=== PATIENT | female | born 1980 | race Two or more races ===

== ENCOUNTER 2017-03-19 16:39 | Emergency (ER) | payer MEDICAID ==
[~2017-03-19] VITALS: Ht 152.4 cm; Wt 75.4 kg
[2017-03-19 16:44] VITALS: BP 113/76
== END 2017-03-19 18:57 | disposition home or self-care (01) ==
LOC: ED 18:40
DX: S63.634A Sprain of interphalangeal joint of right ring finger, initial encounter (principal); S63.636A Sprain of interphalangeal joint of right little finger, initial encounter; V20.0XXA Motorcycle driver injured in collision with pedestrian or animal in nontraffic accident, initial encounter; Y93.89 Activity, other specified; Y99.8 Other external cause status; Y92.410 Unspecified street and highway as the place of occurrence of the external cause
CPT/HCPCS: 29125

== ENCOUNTER 2017-07-20 11:11 | Emergency (ER) | payer MEDICAID ==
[~2017-07-20] VITALS: Ht 152.4 cm; Wt 73.0 kg
[2017-07-20 11:23] VITALS: BP 113/72
== END 2017-07-20 12:25 | disposition home or self-care (01) ==
LOC: ED 11:23
DX: J20.8 Acute bronchitis due to other specified organisms (principal)
CPT/HCPCS: 99283

== ENCOUNTER 2018-07-28 10:45 | Emergency (ER) | payer MEDICAID ==
[~2018-07-28] VITALS: Ht 152.4 cm; Wt 65.0 kg
[2018-07-28 11:50] LABS: MICROSCOPIC NOT IND
[2018-07-28 11:56] LABS: ALANINE AMINOTRANSFERASE 20 U/L (12-78); ANION GAP 7 mmol/L (5-15); CALCIUM 7.5 mg/dL (8.5-10.1); CHLORIDE 109 mmol/L (98-107); CREATININE 0.65 mg/dL (0.55-1.02)
[2018-07-28 11:57] LABS: CULTURE INDICATED? NO
[2018-07-28 12:01] LABS: ALKALINE PHOSPHATASE 82 U/L (45-117); BILIRUBIN,TOTAL 0.2 mg/dL (0.2-1.0); TOTAL PROTEIN 6.6 g/dL (6.4-8.2)
[2018-07-28 12:05] LABS: BASOPHILS # (AUTO) 0.03 x10^3/uL (0-0.1); BASOPHILS % (AUTO) 0 % (0-1); EOSINOPHILS # (AUTO) 0.03 x10^3/uL (0-0.4); EOSINOPHILS % (AUTO) 1 % (1-7); LYMPHOCYTES # (AUTO) 1.01 x10^3/uL (1-3.4); LYMPHOCYTES % (AUTO) 15 % (22-44); MD NO; MEAN CORPUSCULAR HEMOGLOBIN 25.9 pg (27.0-34.8); MEAN CORPUSCULAR HGB CONC 33.1 g/dL (32.4-35.8); MEAN CORPUSCULAR VOLUME 78.2 fL (80-100); MEAN PLATELET VOLUME 7.6 fL (7.4-10.4); MONOCYTES # (AUTO) 0.42 x10^3/uL (0.2-0.8); MONOCYTES % (AUTO) 6 % (2-9); NEUTROPHILS # (AUTO) 5.27 x10^3/uL (1.8-6.8); NEUTROPHILS % (AUTO) 78 % (42-75); PLATELET COUNT 343 x10^3/uL (130-400); RED BLOOD COUNT 4.27 x10^6/uL (3.82-5.3); RED CELL DISTRIBUTION WIDTH 15.5 % (9.6-15.2)
[2018-07-28 13:44] VITALS: BP 118/79
== END 2018-07-28 13:45 | disposition home or self-care (01) ==
LOC: ED 13:25
DX: R10.31 Right lower quadrant pain (principal)
CPT/HCPCS: 36415; 71046; 76830; 80053; 81003; 83690; 84703; 85025; 99284

== ENCOUNTER 2020-07-01 11:53 | Emergency (ER) | payer MEDICAID ==
[~2020-07-01] VITALS: Ht 152.4 cm; Wt 64.0 kg
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
--- NOTE | 2020-07-01 12:02 | NUR ---
ERP AT BEDSIDE.
[2020-07-01] MEDS ORDERED: LIDOCAINE-MPF 1%, 5ML ONE (12:27)
[2020-07-01] MEDS ORDERED: DIPH,PERTUSS(ACELL),TET VAC/PF 0.5 ML IM-VACC ONE ×2 (12:30→12:47)
[2020-07-01] MEDS ORDERED: LIDOCAINE 1%, 10ML INFIL ONE (12:30)
--- NOTE | 2020-07-01 13:04 | NUR ---
PT SITTING UPRIGHT ON GURNEY WATCHING TV, CHILDREN AT BEDSIDE. PT DENIES ANY NEEDS AT THIS TIME. CALL LIGHT WITHIN REACH. ERP AT BEDSIDE FOR SUTURES.
[2020-07-01 14:04] VITALS: BP 124/74
== END 2020-07-01 14:06 | disposition home or self-care (01) ==
LOC: ED 12:29
DX: S01.311A Laceration without foreign body of right ear, initial encounter (principal); S33.5XXA Sprain of ligaments of lumbar spine, initial encounter; S39.012A Strain of muscle, fascia and tendon of lower back, initial encounter; S09.90XA Unspecified injury of head, initial encounter; Z98.51 Tubal ligation status; Y04.8XXA Assault by other bodily force, initial encounter; Y93.89 Activity, other specified; Y92.488 Other paved roadways as the place of occurrence of the external cause; Y99.8 Other external cause status
CPT/HCPCS: 12031; 70450; 72110; 90471; 90715; 99284

== ENCOUNTER 2020-07-12 11:02 | Emergency (ER) | payer MEDICAID ==
[~2020-07-12] VITALS: Ht 152.4 cm; Wt 64.5 kg
[2020-07-12 11:13] VITALS: BP 112/70
--- NOTE | 2020-07-12 11:20 | NUR ---
PT SEEN IN TRIAGE BY ALEXANDR PENG PT TO BE DISCHARGED FROM TRIAGE ONCE SUTURES REMOVED.
--- NOTE | 2020-07-12 11:30 | NUR ---
sutures removed, lac is well approximated, covered with bandaid. pt a&o, resps even and unlabored. pt ambulatory to dc desk with steady gait, all questions answered.
== END 2020-07-12 11:30 | disposition home or self-care (01) ==
LOC: ED 11:24
DX: S01.311D Laceration without foreign body of right ear, subsequent encounter (principal); Z48.02 Encounter for removal of sutures; X58.XXXD Exposure to other specified factors, subsequent encounter
CPT/HCPCS: 99282